=== PATIENT | male | born 1990 | race Caucasian/White ===

== ENCOUNTER 2016-12-21 14:34 | Emergency (ER) | payer MEDICAID ==
[2016-12-21 14:41] VITALS: BP 142/86
--- NOTE | 2016-12-21 15:58 | UC ---
Head Injury HPI - HPI Summary HPI Summary: ABOUT 2 MONTHS AGO WAS WALKING HOME WHEN HE TOOK A MISSTEP AND FELL. STRUCK HIS HEAD ON THE PAVEMENT. THINKS HE WAS UNCONSCIOUS "FOR A BIT" BUT IT WAS UNWITNESSED. NOT SURE EXACTLY HOW LONG HE WAS OUT. DID NOT SEEK MEDICAL EVAL AT THE TIME. SINCE THEN HAS HAD PERSISTENT ALVARADO AT NIGHT TIME. NOT DURING THE DAY. DENIES NAUSEA, VISUAL DISTURBANCE, DIZZINESS OR ANY OTHER SYMPTOMS. - History Of Current Complaint Chief Complaint: UCHeadInjury Stated Complaint: HEAD INJURY-PT FELL 2 MO AGO Time Seen by Provider: 12/21/16 15:18 Hx Obtained From: Patient Onset/Duration: Sudden Onset, Lasting Weeks, Still Present Severity Currently: Mild Severity Initially: Mild Pain Intensity: 2 Pain Scale Used: 0-10 Numeric Character: Dull Aggravating Factor(s): Nothing Alleviating Factor(s): Nothing Associated Signs And Symptoms: Positive: Negative - Allergies/Home Medications Allergies/Adverse Reactions: Allergies Allergy/AdvReac Type Severity Reaction Status Date / Time Penicillin V Allergy Unknown Unknown Verified 09/17/15 00:31 Reaction Details PMH/Surg Hx/FS Hx/Imm Hx Psychological History: Anxiety - Surgical History Surgical History: Yes Surgery Procedure, Year, and Place: Toe surgery 2006 - Family History Known Family History: Positive: Other - Schizophrenia. Depression Negative: Cardiac Disease, Diabetes - Social History Alcohol Use: Rare Alcohol Amount: 1 beer every 3 mos Substance Use Type: Marijuana Substance Use Comment - Amount & Last Used: Hx of: synthetic MJ, MJ, Bath salts Smoking Status (MU): Current Every Day Smoker Type: Cigarettes Amount Used/How Often: 1 PPD Length of Time of Smoking/Using Tobacco: 8 years Have You Smoked in the Last Year: Yes Household Exposure Type: Cigarettes - Immunization History Most Recent Influenza Vaccination: 01/2015 Most Recent Tetanus Shot: within last ten yrs (pt believes it was in 2007) Most Recent Pneumonia Vaccination: Pt states recently Review of Systems Constitutional: Negative Respiratory: Negative Cardiovascular: Negative Gastrointestinal: Negative Genitourinary: Negative Neurological: Headache All Other Systems Reviewed And Are Negative: Yes Physical Exam Triage Information Reviewed: Yes Appearance: Well-Appearing, No Pain Distress, Well-Nourished Vital Signs: Initial Vital Signs Temp 98.6 F 12/21/16 14:36 Pulse 99 12/21/16 14:36 Resp 16 12/21/16 14:36 BP 142/86 12/21/16 14:36 Pulse Ox 99 12/21/16 14:36 Vital Signs Reviewed: Yes Eyes: Positive: Conjunctiva Clear ENT: Positive: Hearing grossly normal, Pharynx normal, TMs normal Neck: Positive: Supple, Nontender, No Lymphadenopathy Respiratory: Positive: No respiratory distress, No accessory muscle use Cardiovascular: Positive: Pulses Normal Abdomen Description: Positive: Soft Musculoskeletal: Positive: No Edema Neurological: Positive: Alert, Other: - CN II-XII GROSSLY INTACT BILATERALLY. NEG PRONATOR DRIFT. FINGER TO NOSE INTACT BILATERALLY. HEEL TO SANCHEZ INTACT BILATERALLY. RAPID ALTERNATING MVMTS INTACT. 5/5 STRENGTH Psychological: Positive: Age Appropriate Behavior Skin: Negative: rashes Diagnostics - Radiology CT HEAD W/O CONTRAST Xray Interpretation: No Acute Changes - Negative for CT stigmata of traumatic brain injury or other acute intracranial process. Radiology Interpretation Completed By: Radiologist Head Injury Course/Dx - Differential Dx/Diagnosis Provider Diagnoses: HEADACHE Discharge - Discharge Plan Condition: Stable Disposition: HOME Patient Education Materials: General Headache (ED) Referrals: Jamie Sanchez MD [Primary Care Provider] - If Needed Additional Instructions: YOUR PRESENTATION IS NOT QUITE CONSISTENT WITH POST CONCUSSIVE SYNDROME BUT GIVEN YOUR RECENT HEAD INJURY AND PERSISTENT HEADACHE IT IS A POSSIBILITY. TAKE IBUPROFEN AND BE SURE TO STAY WELL HYDRATED. CONSIDER THAT YOUR HEADACHES MAY BE RELATED TO YOUR MEDICATIONS. DISCUSS THIS WITH YOUR PRESCRIBING PHYSICIAN. CT SCAN TODAY DID NOT SHOW ANYTHING ACUTE. IF YOU WOULD LIKE TO BE EVALUATED FURTHER FOR POSSIBLE CONCUSSIVE SEQUELAE CALL THE [facility]CUSSION [facility] BELOW. [facility]
--- NOTE | 2016-12-21 16:22 | RAD ---
Indication: Persistent headache/pain at top of the head as well as dizziness following injury 2 months ago with loss of consciousness. Comparison: June 05, 2014 CT Technique: Noncontrast CT vertex of skull through foramen magnum. Report: The sulci, ventricles, and basal cisterns are normal for age. Beard matter white matter differentiation is preserved without evidence for edema. No intra or extra axial hemorrhage, mass, or fluid collection detected. Unremarkable visualized orbital contents. Unremarkable calvarium and skull base. Unremarkable scalp. Mild mucosal thickening at the ethmoid sinuses. No visualized paranasal sinus fluid levels. Clear mastoid air spaces. IMPRESSION: Negative for CT stigmata of traumatic brain injury or other acute intracranial process.
== END 2016-12-21 17:53 | disposition home or self-care (01) ==
LOC: UCEAST 14:34
DX: R51 Headache (principal); Z72.0 Tobacco use
CPT/HCPCS: 70450; 99212; G0463

== ENCOUNTER 2017-09-16 19:52 | Emergency (ER) | payer MEDICAID ==
--- OUTSIDE RECORDS SUMMARY | 2017-09-16 19:59 | XMS REPORT ---
:1990 External Reference #:[id number] Author Organization [employer] Address [address] [address] Phone [phone] Care Team Providers Name Role Phone Pascual Hall MD Primary Care Physician Unavailable Payers Type Date Identification Numbers Payment Provider Subscriber Medicaid Effective: Policy Number: [id number] Medicaid Kedar Loyola 2016 Group Name: 1 1 [address] PayID: [id number] [place] [address] Commercial Effective: Policy Number: [employer] Keadr Loyola 2015 [id number] Medicaid Expires: 2016 PayID: [id number] [address] [address] [place] [address] Commercial Effective: 2008 Policy Number: [id number] Alonzo Loyola Expires: 2015 Group Number: [id number] [address] PayID: [id number] [place] [address] Problems Date Description Provider Status Onset: 07/08/2015 Vomiting Deshaun Lyles M.D. Active Family History Date Family Member(s) Problem(s) Comments Mother 62 as of 06/24/2015 Mother Uterus cancer Social History Type Date Description Comments Marital Status Single Lives With Adult family home Occupation Unemployed Cigarette Use Currently smokes 1-5 8 years Cigarettes Daily ETOH Use Occasionally consumes alcohol Smoking Patient is a current smoker, 1ppd max; began age 15. smokes every day Down to 6-7/day as of 10/26/16 Recreational Drug Use Former Drug User Marijuana use in the past; none since 2016 per pt Daily Caffeine Does Not Consume Caffeine Exercise Type/Frequency Exercises sporadically some yoga, calesthenics Allergies, Adverse Reactions, Alerts Date Description Reaction Status Severity Comments 06/24/2015 Penicillin mom says fatal active Fatal 12/06/2016 Coconut active 12/06/2016 Fish-derived Products active 01/21/2009 NKDA inactive Medications Medication Date Status Form Strength Qnty SIG Indications Ordering Provider Clozapine 0 Active Tablets 600mg at bed Unknown 000 time. Venlafaxine HCL 0 Active Caps ER 150mg Unknown ER 000 24HR Docqlace Active Capsules 100mg Unknown 000 Senna Lax Active Tablets 8.6mg Unknown 000 Zyprexa Active Tablets 20mg 1 tab at Unknown 000 at bedtime Zofran Hx Tablets 4mg 30tabs 1 tablet R11.11 Deshaun 016 - by mouth Lyles, three M.D. 017 times a day as needed Tylenol Hx Tablets 325mg prn Dereck E. 009 - Michelle, M.D. 016 Ibuprofen Hx Capsules 200mg prn Dereck E. 009 - Michelle, M.D. 016 Fluphenazine 0 Hx Tablets 10mg Unknown HCL 000 - 016 Clozapine 0 Hx Tablets 200mg Unknown 000 - 018 Vital Signs Date Vital Result Comment 09/04/2017 Weight 157.00 lb Heart Rate 102 /min BP Systolic Sitting 106 mmHg BP Diastolic Sitting 76 mmHg O2 % BldC Oximetry 96 % 07/24/2017 Weight 165.25 lb Heart Rate 102 /min BP Systolic Sitting 120 mmHg BP Diastolic Sitting 86 mmHg Body Temperature 98.7 F O2 % BldC Oximetry 95 % 12/06/2016 Height 73 inches 6'1" Weight 165.00 lb Heart Rate 101 /min BP Systolic Sitting 120 mmHg BP Diastolic Sitting 74 mmHg Body Temperature 98.7 F O2 % BldC Oximetry 97 % BMI (Body Mass Index) 21.8 kg/m2 10/26/2016 Weight 161.00 lb Heart Rate 90 /min BP Systolic Sitting 100 mmHg BP Diastolic Sitting 60 mmHg Respiratory Rate 16 /min Body Temperature 98.2 F O2 % BldC Oximetry 98 % 08/11/2015 Height 72 inches 6'0" Weight 154.50 lb Heart Rate 88 /min BP Systolic Sitting 138 mmHg BP Diastolic Sitting 102 mmHg Body Temperature 98.6 F O2 % BldC Oximetry 98 % BMI (Body Mass Index) 21.0 kg/m2 07/08/2015 Height 72 inches 6'0" Weight 152.12 lb Heart Rate 108 /min BP Systolic Sitting 104 mmHg BP Diastolic Sitting 70 mmHg Body Temperature 98.7 F O2 % BldC Oximetry 98 % BMI (Body Mass Index) 20.6 kg/m2 06/24/2015 Height 72 inches 6'0" Weight 150.00 lb Heart Rate 72 /min BP Systolic Sitting 100 mmHg BP Diastolic Sitting 74 mmHg Body Temperature 97.7 F O2 % BldC Oximetry 98 % BMI (Body Mass Index) 20.3 kg/m2 01/21/2009 Height 71 inches 5'11" Weight 138.00 lb Heart Rate 60 /min BP Systolic Sitting 104 mmHg BP Diastolic Sitting 62 mmHg BMI (Body Mass Index) 19.2 kg/m2 Blood Pressure Percentile 0 % Height Percentile 73 % Weight Percentile 37th Results Test Date Test Result H/L Range Note CBC Auto Diff 08/07/2017 White Blood Count 5.6 10^3/uL 3.5-10.8 Red Blood Count 5.08 10^6/uL 4.0-5.4 Hemoglobin 15.7 g/dL 14.0-18.0 Hematocrit 44 % 42-52 Mean Corpuscular Volume 87 fL 80-94 Mean Corpuscular Hemoglobin 31 pg 27-31 Mean Corpuscular HGB Conc 36 g/dL 31-36 Red Cell Distribution Width 13 % 10.5-15 Platelet Count 201 10^3/uL 150-450 Mean Platelet Volume 7 um3 Low 7.4-10.4 Abs Neutrophils 3.3 10^3/uL 1.5-7.7 Abs Lymphocytes 1.6 10^3/uL 1.0-4.8 Abs Monocytes 0.4 10^3/uL 0-0.8 Abs Eosinophils 0.1 10^3/uL 0-0.6 Abs Basophils 0.1 10^3/uL 0-0.2 Abs Nucleated RBC 0 10^3/uL Granulocyte % 59.1 % 38-83 Lymphocyte % 29.7 % 25-47 Monocyte % 7.7 % High 0-7 Eosinophil % 2.4 % 0-6 Basophil % 1.1 % 0-2 Nucleated Red Blood Cells % 0.1 Laboratory test 10/26/2016 Rapid Group A Strep negative finding Urine Drug SCR ED 08/06/2015 Amphetamine Ur Screen None Detected None Detect & Pain Clinic Barbiturates Urine Screen None Detected None Detect Benzodiazepine Urine Screen None Detected None Detect Urine Cannabinoids Screen Presumptive Posi <SEE NOTE> None Detect 1 Urine Cocaine Screen None Detected None Detect Urine Opiates Screen None Detected None Detect Urine Phencyclidine Screen None Detected None Detect 2 Comp Metabolic Panel 08/06/2015 Sodium 136 mmol/L 133-145 Potassium 3.9 mmol/L 3.5-5.0 Chloride 102 mmol/L 101-111 Co2 Carbon Dioxide 26 mmol/L 22-32 Anion Gap 8 mmol/L 2-11 Glucose 95 mg/dL 70-100 Blood Urea Nitrogen 12 mg/dL 6-24 Creatinine 1.12 mg/dL 0.67-1.17 BUN/Creatinine Ratio 10.7 8-20 Calcium 9.8 mg/dL 8.6-10.3 Total Protein 7.7 g/dL 6.4-8.9 Albumin 4.6 g/dL 3.2-5.2 Globulin 3.1 g/dL 2-4 Albumin/Globulin Ratio 1.5 1-3 Total Bilirubin 0.50 mg/dL 0.2-1.0 Alkaline Phosphatase 75 U/L 34-104 Alt 46 U/L 7-52 Ast 79 U/L High 13-39 Egfr Non- 80.5 >60 Egfr 103.6 >60 3 Laboratory test finding 08/06/2015 Acetaminophen < 15 g/mL 4 Alcohol < 10 mg/dL <10 Salicylate < 2.50 mg/dL <30 TSH (Thyroid Stim Horm) 1.82 ?IU/mL 0.34-5.60 CBC Auto Diff 06/25/2015 White Blood Count 5.2 10^3/uL 3.5-10.8 Red Blood Count 5.22 10^6/uL 4.0-5.4 Hemoglobin 16.1 g/dL 14.0-18.0 Hematocrit 48 % 42-52 Mean Corpuscular Volume 92 fL 80-94 Mean Corpuscular Hemoglobin 31 pg 27-31 Mean Corpuscular HGB Conc 33 g/dL 31-36 Red Cell Distribution Width 13 % 10.5-15 Platelet Count 249 10^3/uL 150-450 Mean Platelet Volume 8 um3 7.4-10.4 Abs Neutrophils 2.8 10^3/uL 1.5-7.7 Abs Lymphocytes 1.7 10^3/uL 1.0-4.8 Abs Monocytes 0.4 10^3/uL 0-0.8 Abs Eosinophils 0.3 10^3/uL 0-0.6 Abs Basophils 0 10^3/uL 0-0.2 Abs Nucleated RBC 0 10^3/uL Granulocyte % 53.5 % 38-83 Lymphocyte % 32.1 % 25-47 Monocyte % 6.9 % 1-9 Eosinophil % 6.6 % High 0-6 Basophil % 0.9 % 0-2 Nucleated Red Blood Cells % 0.1 Comp Metabolic Panel 06/25/2015 Sodium 137 mmol/L 133-145 Potassium 4.1 mmol/L 3.5-5.0 Chloride 103 mmol/L 101-111 Co2 Carbon Dioxide 27 mmol/L 22-32 Anion Gap 7 mmol/L 2-11 Glucose 79 mg/dL 70-100 Blood Urea Nitrogen 13 mg/dL 6-24 Creatinine 1.02 mg/dL 0.67-1.17 BUN/Creatinine Ratio 12.7 8-20 Calcium 9.5 mg/dL 8.6-10.3 Total Protein 7.2 g/dL 6.4-8.9 Albumin 4.7 g/dL 3.2-5.2 Globulin 2.5 g/dL 2-4 Albumin/Globulin Ratio 1.9 1-3 Total Bilirubin 0.70 mg/dL 0.2-1.0 Alkaline Phosphatase 68 U/L 34-104 Alt 12 U/L 7-52 Ast 19 U/L 13-39 Egfr Non- 90.5 >60 Egfr 116.4 >60 5 1 Presumptive Positive 2 The urine specimen was tested at the listed cutoffs: Drug class test level (ng/mL) Amphetamines 500 Barbituates 200 Benzodiazepine metabolites 200 Cocaine metabolites 150 Cannabinoids 50 Opiates 300 Pcp 25 This is a screening procedure. Positive results are not confirmed. Specimen was received without chain of custody. Results should be used for medical purposes only. 3 Because ethnic data is not always readily available, this report includes an eGFR for both -Americans and non- Americans. The National Kidney Disease Education Program (NKDEP) does not endorse the use of the MDRD equation for patients that are not between the ages of 18 and 70, are , have extremes of body size, muscle mass, or nutritional status, or are non- or non-. According to the National Kidney Foundation, irrespective of diagnosis, the stage of the disease is based on the level of kidney function: Stage Description GFR(mL/min/1.73 m(2)) 1 Kidney damage with normal or decreased GFR 90 2 Kidney damage with mild decrease in GFR 60-89 3 Moderate decrease in GFR 30-59 4 Severe decrease in GFR 15-29 5 Kidney failure <15 (or dialysis) 4 Therapeutic concentration: <50 ug/mL Toxic concentration: >120 ug/mL 5 Because ethnic data is not always readily available, this report includes an eGFR for both -Americans and non- Americans. The National Kidney Disease Education Program (NKDEP) does not endorse the use of the MDRD equation for patients that are not between the ages of 18 and 70, are , have extremes of body size, muscle mass, or nutritional status, or are non- or non-. According to the National Kidney Foundation, irrespective of diagnosis, the stage of the disease is based on the level of kidney function: Stage Description GFR(mL/min/1.73 m(2)) 1 Kidney damage with normal or decreased GFR 90 2 Kidney damage with mild decrease in GFR 60-89 3 Moderate decrease in GFR 30-59 4 Severe decrease in GFR 15-29 5 Kidney failure <15 (or dialysis) Procedures Description No Information Encounters Type Date Location Provider CPT E/M Dx Office Visit 07/24/2017 2:00p [facility] Internal [facility] Dereck Martinez, 31843 R11.0 - [place] [facility] Office Visit 12/06/2016 3:20p [facility] Dereck Martinez, 26171 R11.0 - [place] [facility] Office Visit 10/26/2016 2:00p [facility] Medicine Dereck Martinez, 99678 R07.0 - [place] Issa K62.5 Office Visit 08/11/2015 10:20a [facility] Deshaun Lyles M.D. 75753 K92.0 - [address] Office Visit 07/08/2015 2:20p [facility] Deshaun Lyles M.D. 49547 R11.11 - [address] M25.561 F12.90 F17.210 Office Visit 06/24/2015 11:00a [facility] Internal Medicine Deshaun Lyles M.D. 63049 R11.11 - [address] M79.671 F17.210 F12.90 Office Visit 01/21/2009 2:15p [facility] Dereck Martinez, 57116 V70.0 [facility] Luis Manuel v70.0 Plan of Care 09/04/2017 - Dereck Martinez M.D.R11.11 Vomiting without qjoruyU89.671 Pain in right footReferral:Barbara Rudd, CHAYO, [place]
[2017-09-16 20:30] VITALS: BP 119/83
--- NOTE | 2017-09-16 21:41 | UC ---
Dental HPI - HPI Summary HPI Summary: 27 y/o male presents to the urgent care c/o left upper wisdom tooth pain for the past month. Pt states pain has been intermittent and dull, but yesterday it progressively became worse every time he chews. Pain is 6/10. He has not taken anything to alleviate pain. Pt lives in a long-term and is working w/ ACT team to get an Dentist appt. Pt denies fever, trismus, ALVARADO, SOB, chest pain, abdominal pain, N/V/D - History of Current Complaint Chief Complaint: UCDentalProblem Stated Complaint: TOOTH PAIN Time Seen by Provider: 09/16/17 21:37 Hx Obtained From: Patient Onset/Duration: Gradual Onset, Lasting Weeks - 1 month, Still Present, Worse Since - yesterday Severity: Moderate Pain Intensity: 7 Pain Scale Used: 0-10 Numeric Aggravating Factor(s): Chewing Alleviating Factor(s): Nothing - Allergies/Home Medications Allergies/Adverse Reactions: Allergies Allergy/AdvReac Type Severity Reaction Status Date / Time coconut Allergy Swelling Verified 09/16/17 20:20 Of Face,Lips,& Throat Fish Containing Products Allergy Headache Verified 09/16/17 20:20 Penicillins Allergy Unknown Verified 09/16/17 20:19 Reaction Details Home Medications: Home Medications CloZAPine TAB* 100 mg PO DAILY 09/16/17 [History Confirmed 09/16/17] Docusate CAP* [Colace Cap*] 100 mg PO DAILY 09/16/17 [History Confirmed 09/16/17 ] OLANzapine TAB* [Zyprexa 10 MG TAB*] 10 mg PO BEDTIME 09/16/17 [History Confirmed 09/16/17] Senna TAB* [Senokot TAB*] 1 tab PO BID 09/16/17 [History Confirmed 09/16/17] Venlafaxine EXT RELEASE CAP* [Effexor Xr CAP*] 150 mg PO DAILY 09/16/17 [ History Confirmed 09/16/17] PMH/Surg Hx/FS Hx/Imm Hx Previously Healthy: Yes Other GI/ History: Constipation Psychological History: Schizophrenia - Surgical History Surgical History: Yes Surgery Procedure, Year, and Place: Toe surgery 2006 - Family History Known Family History: Negative: Cardiac Disease, Diabetes Family History: Schizophrenia. Depression - Social History Occupation: Student Lives: [employer] Alcohol Use: None Alcohol Amount: 1 beer every 3 mos Substance Use Type: None Substance Use Comment - Amount & Last Used: Hx of: synthetic MJ, MJ, Bath salts Smoking Status (MU): Current Every Day Smoker Type: Pipe Amount Used/How Often: 4-5 pipes/ day Length of Time of Smoking/Using Tobacco: 8 years Have You Smoked in the Last Year: Yes Household Exposure Type: Cigarettes - Immunization History Most Recent Influenza Vaccination: 01/2015 Most Recent Tetanus Shot: within last ten yrs (pt believes it was in 2007) Most Recent Pneumonia Vaccination: Pt states recently Vaccination Up to Date: Yes Review of Systems Constitutional: Negative Skin: Negative Eyes: Negative ENT: Dental Pain - left upper wisdom tooth pain Respiratory: Negative Cardiovascular: Negative Gastrointestinal: Negative Genitourinary: Negative Motor: Negative Neurovascular: Negative Musculoskeletal: Negative Neurological: Negative Psychological: Negative Is Patient Immunocompromised?: No All Other Systems Reviewed And Are Negative: Yes Physical Exam - Summary Physical Exam Summary: Vital Signs Reviewed: Yes General: well developed. well nourished male sitting in the examining table w/o any apparent distress Eyes: Positive: Conjunctiva Clear - PERRLA, EOMI, fundi grossly normal ENT: Positive: Normal ENT inspection, Hearing grossly normal, Pharyngeal erythema, TMs normal, Uvula midline. Negative: Tonsillar swelling, Tonsillar exudate, Trismus Dental: Positive: Percussion Tenderness @ - molar 16, Gross Decay/Caries @ - molar 16, Abscess @ - molar 16, Cervical Lymphadenopathy - B/L anterior, Neck: Positive: Supple, Nontender Respiratory: Positive: Chest non-tender, Lungs clear, Normal breath sounds, No respiratory distress Cardiovascular: Positive: RRR, No Murmur, Pulses Normal, Brisk Capillary Refill Abdomen Description: Positive: Nontender, No Organomegaly, Soft. Negative: CVA Tenderness (R), CVA Tenderness (L) Bowel Sounds: Positive: Present Musculoskeletal: Positive: Strength Intact, ROM Intact, No Edema Neurological Exam: Normal Psychological Exam: Normal Skin Exam: Normal Triage Information Reviewed: Yes Vital Signs: Initial Vital Signs Temp 97.8 F 09/16/17 20:24 Pulse 100 09/16/17 20:24 Resp 20 09/16/17 20:24 BP 119/83 09/16/17 20:24 Pulse Ox 97 09/16/17 20:24 Dental Complaint Course/Dx - Course Course Of Treatment: 27 y/o male presents to the urgent care c/o left upper wisdom tooth pain for the past month. Pt states pain has been intermittent and dull, but yesterday it progressively became worse every time he chews. Pain is 6/10. He has not taken anything to alleviate pain. Pt lives in a long-term and is working w/ ACT team to get an Dentist appt. Pt denies fever, trismus, ALVARADO , SOB, chest pain, abdominal pain, N/V/D. Hx obtained. Pt w/Positive: Percussion Tenderness @ - molar 16, Gross Decay/Caries @ - molar 16, Abscess @ - molar 16, on examination. Pt given viscous Lidocaine at the clinic to alleviate symptoms. Pt PCN allergic. Pt Rx Clindamycin PO and advised to take Ibuprofen PO for pain. Pt strongly advised to f/u with Dentist as soon as possible further evaluation and treatment. Pt understood and agreed with plan of care. Left the clinic ambulating. - Differential Dx/Diagnosis Differential Diagnosis/Dx: Dental Abscess, Dental Caries, Fractured Tooth, Odontogenic Pain, Peridontic Disease, Peritonsillar Abcess, TMJ Syndrome Provider Diagnoses: 1- Dental abscess at molar #16. 2- Left upper wisdom tooth pain w/ gross decay Discharge - Sign-Out/Discharge Documenting (check all that apply): Discharge - Discharge Plan Condition: Stable Disposition: HOME Prescriptions: Clindamycin Cap(NF) [Clindamycin Cap 300 mg Cap(NF)] 300 mg PO TID #28 cap Patient Education Materials: Dental Abscess (ED), Toothache (ED) Referrals: Dereck Martinez MD [Primary Care Provider] - 2 Days Additional Instructions: 1-Please take full course of antibiotic to avoid resistance. Please take Probiotics to protect your GI matthew 2- Take Ibuprofen PO q6-8hrs prn as instructed after meals to alleviate pain and swelling. 3- F/u with your Dentist or Dental List provided as soon as possible for further treatment. 4- If symptoms do not improve or worsen please return to the urgent care or f/u with your PCP for further evaluation and treatment - Billing Disposition and Condition Condition: STABLE Disposition: HOME
[2017-09-16] MEDS ORDERED: Ibuprofen TAB* 400 MG PO ONE (22:06)
[2017-09-16] MEDS ORDERED: Clindamycin CAP* 150 MG PO ONE (22:06)
[2017-09-16] MEDS ORDERED: Lidocaine 2% VISCOUS* 15 ML UDC SWISH SPIT ONE (22:07)
== END 2017-09-16 22:19 | disposition home or self-care (01) ==
LOC: UCEAST 19:52
DX: K04.7 Periapical abscess without sinus (principal); K02.9 Dental caries, unspecified; K59.00 Constipation, unspecified; F20.9 Schizophrenia, unspecified; Z88.0 Allergy status to penicillin; F17.210 Nicotine dependence, cigarettes, uncomplicated
CPT/HCPCS: 99212; A9270-GY; G0463

== ENCOUNTER 2023-11-10 13:21 | Inpatient (IN) ==
[2023-11-10 16:42] LABS: ABS Lymphocytes 0.8 10^3/uL (1.0-4.8); ABS Monocytes 0.1 10^3/uL (0.0-1.1); ABS Neutrophils 8.9 10^3/uL (1.5-7.6); ABS Nucleated RBC 0.09 10^3/ul; Hematocrit 47.1 % (38-53); Hemoglobin 16.4 g/dL (13.2-16.3); Lymphocyte % 7.8 %; Mean Corpuscular Hemoglobin 31.1 pg (27-33); Mean Corpuscular Hgb Conc 34.8 g/dL (31-36); Mean Corpuscular Volume 89.5 fL (80-97); Mean Platelet Volume 6.8 fL (7.5-11.2); Nucleated Red Blood Cells % 0.9 %/100WBC (0.0-0.8); Platelet Count 250 10^3/uL (150-450); Red Blood Count 5.27 10^6/uL (4.06-5.63); Red Cell Distribution Width 14.5 % (12-17); White Blood Count 9.8 10^3/uL (3.6-10.2)
[2023-11-10] MEDS: Ondansetron ODT 4 mg TAB 4 MG TAB PO ONE (17:20)
[2023-11-10 17:26] LABS: Anion Gap 17 mmol/L (2-16); Blood Urea Nitrogen 13 mg/dL (6-24); C Reactive Protein 2.79 mg/L (<8.01); CO2 Carbon Dioxide 16 mmol/L (22-32); Calcium 10.5 mg/dL (8.6-10.3); Chloride 100 mmol/L (101-111); Glucose 129 mg/dL (70-100); Potassium 5.3 mmol/L (3.5-5.0); Sodium 133 mmol/L (135-145); eGFR CKD-EPI 58.3 (>60)
[2023-11-10 17:27] LABS: AST 486 U/L (13-39); Albumin 5.1 g/dL (3.2-5.2); Albumin/Globulin Ratio 2.1 (1-3); Alkaline Phosphatase 136 U/L (35-149); Globulin 2.4 g/dL (2-4); Lipase 24 U/L (11.0-82.0); Magnesium 2.1 mg/dL (1.9-2.7); Salicylate < 2.50 mg/dL (<30); Total Bilirubin 1.7 mg/dL (0.2-1.0); Total Protein 7.5 g/dL (6.4-8.9)
[2023-11-10 17:33] LABS: Acetaminophen 65 mcg/mL
[2023-11-10 17:57] LABS: ALT 719 U/L (7-52)
[2023-11-10 18:36] LABS: INR 1.95 (0.83-1.13)
[2023-11-10] MEDS ORDERED: Thiamine 100 MG/ML 2 ml VIAL (200 mg) IV ONE (18:59)
[2023-11-10] MEDS: ACETYLCYSTEINE IV ONE (19:02)
[2023-11-10] MEDS: D5W IV ONE (19:02)
[2023-11-10 19:32] LABS: Alcohol, S < 13 mg/dL (<13)
[2023-11-10] MEDS: Metoclopramide 5 MG/ML VIAL (10 mg) IV SLOW PU ONE (20:13)
[2023-11-10] MEDS: Thiamine IV 100 MG in NS 0.9% 50 ML Q24H IV ONE (20:16)
[2023-11-10] MEDS: Lactated Ringers 1000 ml BAG 1,000 ML IV ONE ×2 (20:16→23:52)
[2023-11-10 23:32] LABS: Albumin 4.4 g/dL (3.2-5.2); Albumin/Globulin Ratio 2.1 (1-3); Direct Bilirubin 1.2 mg/dL (0.03-0.18); Globulin 2.1 g/dL (2-4); Indirect Bilirubin 0.9 mg/dL (0.3-1.0); Total Bilirubin 2.1 mg/dL (0.2-1.0); Total Protein 6.5 g/dL (6.4-8.9)
[2023-11-10] MEDS: Ondansetron 4 mg VIAL 2 MG/ML 2 ml VIAL IV ONE (23:53)
[2023-11-11] MEDS: Ondansetron 4 mg VIAL 2 MG/ML 2 ml VIAL IV ONE (00:55)
[2023-11-11] MEDS: ACETYLCYSTEINE IV ONE ×2 (01:21→06:07)
[2023-11-11] MEDS: D5W IV ONE ×2 (01:21→06:07)
[2023-11-11] MEDS: Lactated Ringers 1000 ml BAG 1,000 ML IV ONE (02:22)
[2023-11-11 02:34] LABS: Venous Bicarbonate HCO3 12.5 mmol/L (24-28)
[2023-11-11] MEDS: Droperidol 5 MG/2 ML 2 ML VIAL IV ONE (03:14)
[2023-11-11 04:22] LABS: ABS Lymphocytes 0.3 10^3/uL (1.0-4.8); ABS Monocytes 0.2 10^3/uL (0.0-1.1); ABS Neutrophils 10.8 10^3/uL (1.5-7.6); ABS Nucleated RBC 0.03 10^3/ul; Hematocrit 43.6 % (38-53); Lymphocyte % 2.6 %; Mean Corpuscular Hemoglobin 30.9 pg (27-33); Mean Corpuscular Hgb Conc 34.4 g/dL (31-36); Mean Corpuscular Volume 89.9 fL (80-97); Mean Platelet Volume 7.5 fL (7.5-11.2); Nucleated Red Blood Cells % 0.2 %/100WBC (0.0-0.8); Platelet Count 212 10^3/uL (150-450); Red Blood Count 4.86 10^6/uL (4.06-5.63); Red Cell Distribution Width 14.6 % (12-17); White Blood Count 11.3 10^3/uL (3.6-10.2)
[2023-11-11] MEDS: Lactated Ringers 1000 ml BAG 1,000 ML IV SCH (04:28)
[2023-11-11 04:32] LABS: INR 3.91 (0.83-1.13)
[2023-11-11 05:12] LABS: Acetaminophen 34 mcg/mL; Albumin 4.4 g/dL (3.2-5.2); Albumin/Globulin Ratio 2.3 (1-3); Alkaline Phosphatase 124 U/L (35-149); Anion Gap 24 mmol/L (2-16); Blood Urea Nitrogen 14 mg/dL (6-24); CO2 Carbon Dioxide 13 mmol/L (22-32); Calcium 9.8 mg/dL (8.6-10.3); Chloride 99 mmol/L (101-111); Globulin 1.9 g/dL (2-4); Glucose 72 mg/dL (70-100); Magnesium 1.9 mg/dL (1.9-2.7); Sodium 136 mmol/L (135-145); Total Protein 6.3 g/dL (6.4-8.9); eGFR CKD-EPI 68.5 (>60)
[2023-11-11 05:24] LABS: ALT 1929 U/L (7-52)
[2023-11-11 05:40] LABS: Hepatitis B Surface Antigen Nonreactive (Nonreactive)
[2023-11-11 05:45] LABS: Hepatitis A Ab IgM Negative (Negative)
[2023-11-11 05:46] LABS: Hepatitis B Core IgM Nonreactive (Nonreactive); Osmolality Serum 295 mOsm/kg (275-295)
[2023-11-11 05:58] LABS: Hepatitis C Antibody Negative (Negative)
[2023-11-11 06:26] LABS: Phosphorus 2.6 mg/dL (2.5-5.0); Potassium Redraw 5.5 mmol/L (3.5-5.0)
[2023-11-11] MEDS: NORMOSOL-R pH 7.4 1000 mL BAG 1,000 ML IV SCH (06:57)
[2023-11-11] MEDS ORDERED: Promethazine INJ(RESTRICTED) 25 MG/ML 1 ml VIAL IV PRN (09:10)
[2023-11-11] MEDS: Ondansetron 4 mg VIAL 2 MG/ML 2 ml VIAL ONE (09:21)
[2023-11-11 09:44] LABS: Venous Bicarbonate HCO3 19.9 mmol/L (24-28)
[2023-11-11] MEDS ORDERED: SODIUM CHLORIDE IVPB PRN (10:25)
[2023-11-11] MEDS ORDERED: PROMETHAZINE 25 MG IVPB PRN (10:25)
[2023-11-11 10:35] LABS: INR 4.96 (0.83-1.13)
[2023-11-11 10:50] LABS: ALT 2341 U/L (7-52); Albumin 3.7 g/dL (3.2-5.2); Albumin/Globulin Ratio 2.2 (1-3); Alkaline Phosphatase 116 U/L (35-149); Anion Gap 19 mmol/L (2-16); Blood Urea Nitrogen 12 mg/dL (6-24); CO2 Carbon Dioxide 17 mmol/L (22-32); Calcium 8.5 mg/dL (8.6-10.3); Chloride 102 mmol/L (101-111); Creatinine, Serum 1.18 mg/dL (0.67-1.17); Globulin 1.7 g/dL (2-4); Glucose 75 mg/dL (70-100); Sodium 138 mmol/L (135-145); Total Bilirubin 3.1 mg/dL (0.2-1.0); Total Protein 5.4 g/dL (6.4-8.9); eGFR CKD-EPI 84.1 (>60)
[2023-11-11 10:59] LABS: Potassium, Whole Blood 4.9 mmol/L (3.4-4.5)
[2023-11-11 11:16] LABS: Acetaminophen 26 mcg/mL
[2023-11-11 11:27] LABS: Urine Appearance Clear; Urine Bilirubin Negative (Negative); Urine Blood Trace (Negative); Urine Color Yellow; Urine Glucose Negative (Negative); Urine Ketones 2+ (Negative); Urine Nitrite Negative (Negative); Urine Protein 1+ (>=30 mg/dL) (Negative); Urine Specific Gravity 1.019 (1.002-1.030); Urine Urobilinogen Negative (Negative); Urine pH 5.5 (5.0-8.0)
[2023-11-11 11:34] LABS: Urine Bacteria Absent /HPF (Absent); Urine Red Blood Cell Trace(0-2/hpf) /HPF (0-Trace); Urine Squamous Epithelial Cell Present /HPF (Absent); Urine White Blood Cell Trace(0-5/hpf) /HPF (0-Trace)
[2023-11-11] MEDS: Thiamine 100 MG/ML 2 ml VIAL 500 MG in NS 0.9% 250 ml 250 ML IV ONE (11:36)
[2023-11-11 11:41] LABS: Urine Benzodiazepine Screen None Detected (None Detect); Urine Cannabinoids Screen Presumptive Positive (None Detect); Urine Opiates Screen None Detected (None Detect)
[2023-11-11] MEDS: Ondansetron 4 mg VIAL 2 MG/ML 2 ml VIAL IV PRN (14:23)
[2023-11-11] MEDS: Phytonadione SUBCUT/IM Adult 10 MG/ML AMP (IM or SQ not preferred route) SUBCUT ONE (14:28)
[2023-11-11 15:11] LABS: Hematocrit 42.2 % (38-53); Hemoglobin 14.5 g/dL (13.2-16.3)
[2023-11-11 15:26] LABS: INR 5.83 (0.83-1.13)
[2023-11-11 16:01] LABS: ALT 3181 U/L (7-52); Acetaminophen 19 mcg/mL; Albumin 3.8 g/dL (3.2-5.2); Albumin/Globulin Ratio 2.2 (1-3); Alkaline Phosphatase 119 U/L (35-149); Anion Gap 14 mmol/L (2-16); Blood Urea Nitrogen 13 mg/dL (6-24); CO2 Carbon Dioxide 20 mmol/L (22-32); Calcium 8.9 mg/dL (8.6-10.3); Chloride 101 mmol/L (101-111); Creatinine, Serum 1.21 mg/dL (0.67-1.17); Globulin 1.7 g/dL (2-4); Glucose 75 mg/dL (70-100); Sodium 135 mmol/L (135-145); Total Bilirubin 3.6 mg/dL (0.2-1.0); Total Protein 5.5 g/dL (6.4-8.9); eGFR CKD-EPI 81.6 (>60)
[2023-11-11 16:31] LABS: Potassium, Whole Blood 4.8 mmol/L (3.4-4.5)
[2023-11-11] MEDS ORDERED: fentaNYL 100 mcg/2 ml 50 MCG/ML VIAL IV SLOW PU PRN (17:07)
[2023-11-11 18:06] VITALS: BP 133/85
[2023-11-11] MEDS ORDERED: D5W IV SCH (22:00)
[2023-11-11] MEDS ORDERED: ACETYLCYSTEINE IV SCH (22:00)
== END 2023-11-11 18:40 | disposition short-term general hospital (02) ==
LOC: ED 13:21 → EDHOLD 21:13 → ICU 21:27
PROVIDERS: ADMIT Student in an Organized Health Care Education/Training Program; ATTEND Student in an Organized Health Care Education/Training Program

== ENCOUNTER 2024-04-30 18:16 | Inpatient (IN) ==
[2024-04-30 19:01] LABS: Urine Appearance Clear; Urine Bilirubin Negative (Negative); Urine Blood Negative (Negative); Urine Color Yellow; Urine Glucose Negative (Negative); Urine Ketones Negative (Negative); Urine Nitrite Negative (Negative); Urine Protein Trace (Negative); Urine Specific Gravity 1.023 (1.002-1.030); Urine Urobilinogen Negative (Negative); Urine pH 6.5 (5.0-8.0)
[2024-04-30 19:04] LABS: Urine Bacteria Absent /HPF (Absent); Urine Red Blood Cell 1+(3-5/hpf) /HPF (0-Trace); Urine Squamous Epithelial Cell Present /HPF (Absent); Urine White Blood Cell 1+(6-10/hpf) /HPF (0-Trace)
[2024-04-30 19:19] LABS: Urine Benzodiazepine Screen None Detected (None Detect); Urine Cannabinoids Screen None Detected (None Detect); Urine Opiates Screen None Detected (None Detect)
[2024-04-30 19:33] LABS: ALT 15 U/L (7-52); AST 18 U/L (13-39); Acetaminophen < 15 mcg/mL; Albumin 4.8 g/dL (3.2-5.2); Albumin/Globulin Ratio 2.1 (1-3); Alcohol, S < 13 mg/dL (<13); Alkaline Phosphatase 81 U/L (35-149); Anion Gap 6 mmol/L (2-16); Blood Urea Nitrogen 8 mg/dL (6-24); CO2 Carbon Dioxide 28 mmol/L (22-32); Calcium 9.8 mg/dL (8.6-10.3); Chloride 104 mmol/L (101-111); Creatinine, Serum 0.88 mg/dL (0.67-1.17); Globulin 2.3 g/dL (2-4); Glucose 77 mg/dL (70-100); Potassium 3.9 mmol/L (3.5-5.0); Salicylate < 2.50 mg/dL (<30); Sodium 138 mmol/L (135-145); Total Bilirubin 0.5 mg/dL (0.2-1.0); Total Protein 7.1 g/dL (6.4-8.9); eGFR CKD-EPI 117.2 (>60)
[2024-04-30 19:37] LABS: ABS Lymphocytes 1.6 10^3/uL (1.0-4.8); ABS Monocytes 0.4 10^3/uL (0.0-1.1); ABS Neutrophils 2.7 10^3/uL (1.5-7.6); Anisocytosis 2+; Hematocrit 40.7 % (38-53); Hemoglobin 13.8 g/dL (13.2-16.3); Lymphocyte % 33.6 %; Mean Corpuscular Hemoglobin 28.4 pg (27-33); Mean Corpuscular Hgb Conc 33.9 g/dL (31-36); Mean Corpuscular Volume 83.8 fL (80-97); Mean Platelet Volume 7.1 fL (7.5-11.2); Nucleated Red Blood Cells % 0.1 %/100WBC (0.0-0.8); Platelet Count 209 10^3/uL (150-450); Red Blood Count 4.86 10^6/uL (4.06-5.63); Red Cell Distribution Width 18.1 % (12-17); Tear Drop Cells 1+; White Blood Count 4.8 10^3/uL (3.6-10.2)
[2024-04-30 19:46] LABS: TSH Ultra Thyroid Stim Horm 0.99 mcIU/mL (0.34-5.60)
[2024-04-30] MEDS: OLANZapine 10 mg TAB*ODT PO ONE (21:12)
[2024-05-01] MEDS: Vitamin THERAPEUTIC TAB PO SCH (08:12)
[2024-05-01] MEDS: Multivitamins/Minerals TAB PO SCH (12:43)
[2024-05-01] MEDS: Senna TAB 8.6 mg TAB PO SCH (20:50)
[2024-05-02] MEDS: Cholecalciferol (VIT D3) 1,000 unit TAB PO SCH (09:48)
[2024-05-02] MEDS: Aspirin EC 81 mg TAB.EC (enteric coated) PO SCH (09:49)
[2024-05-02] MEDS: Polyethylene Glycol 3350 17 GM PACKET PO SCH (09:51)
[2024-05-02] MEDS: Al Hydrox/Mg Hydrox/Simet LIQ 30 ML UDC PO PRN (20:41)
[2024-05-06 08:49] LABS: HDL Cholesterol 56.6 mg/dL
[2024-05-08 07:54] LABS: ABS Lymphocytes 1.8 10^3/uL (1.0-4.8); ABS Monocytes 0.4 10^3/uL (0.0-1.1); ABS Neutrophils 1.9 10^3/uL (1.5-7.6); Eosinophil % 0.2 %; Hematocrit 40.4 % (38-53); Lymphocyte % 43.3 %; Mean Corpuscular Hemoglobin 29.1 pg (27-33); Mean Corpuscular Hgb Conc 34.7 g/dL (31-36); Mean Corpuscular Volume 83.7 fL (80-97); Mean Platelet Volume 7.5 fL (7.5-11.2); Platelet Count 180 10^3/uL (150-450); Red Blood Count 4.83 10^6/uL (4.06-5.63); Red Cell Distribution Width 17.7 % (12-17); White Blood Count 4.1 10^3/uL (3.6-10.2)
[2024-05-08 08:14] LABS: Albumin 4.1 g/dL (3.2-5.2); Albumin/Globulin Ratio 1.6 (1-3); Calcium 9.3 mg/dL (8.6-10.3); Creatinine, Serum 0.77 mg/dL (0.67-1.17); Globulin 2.5 g/dL (2-4); Potassium 4.3 mmol/L (3.5-5.0); Total Bilirubin 0.4 mg/dL (0.2-1.0); Total Protein 6.6 g/dL (6.4-8.9)
[2024-05-17 15:25] LABS: Folate > 20.00 ng/mL (5.90-24.80)
[2024-05-17 15:27] LABS: Vitamin B12 314 pg/mL (180-914)
[2024-05-22] MEDS: Nicotine GUM 4MG FRUIT FLAVOR PO PRN (14:59)
[2024-05-30 17:36] LABS: ABS Lymphocytes 1.5 10^3/uL (1.0-4.8); ABS Monocytes 0.5 10^3/uL (0.0-1.1); ABS Neutrophils 2.4 10^3/uL (1.5-7.6); ABS Nucleated RBC 0.02 10^3/ul; Eosinophil % 0.2 %; Hematocrit 43.9 % (38-53); Hemoglobin 15.2 g/dL (13.2-16.3); Lymphocyte % 33.2 %; Mean Corpuscular Hemoglobin 29.4 pg (27-33); Mean Corpuscular Hgb Conc 34.7 g/dL (31-36); Mean Corpuscular Volume 84.9 fL (80-97); Mean Platelet Volume 7.2 fL (7.5-11.2); Nucleated Red Blood Cells % 0.5 %/100WBC (0.0-0.8); Platelet Count 165 10^3/uL (150-450); Red Blood Count 5.17 10^6/uL (4.06-5.63); Red Cell Distribution Width 15.4 % (12-17); White Blood Count 4.5 10^3/uL (3.6-10.2)
[2024-05-30 18:11] LABS: Albumin 4.8 g/dL (3.5-5.7); Albumin/Globulin Ratio 1.5 (1-3); Creatinine, Serum 1.09 mg/dL (0.67-1.17); Globulin 3.1 g/dL (2-4); Potassium 4.1 mmol/L (3.5-5.0); Total Bilirubin 0.6 mg/dL (0.2-1.0); Total Protein 7.9 g/dL (6.4-8.9); eGFR CKD-EPI 92.5 (>60)
[2024-06-05 14:01] VITALS: BP 118/78
== END 2024-06-06 09:30 | DRG 750 ==
LOC: ED 18:16 → BSU 22:23 → EDHOLD 22:25 → BSU 22:27
PROVIDERS: ADMIT Psychiatry & Neurology Psychiatry; ATTEND Psychiatry & Neurology Psychiatry